=== PATIENT | female | born 2000 | race Two or more races ===

== ENCOUNTER 2025-04-27 19:25 | Emergency (ER) | payer OTHER ==
[~2025-04-27] VITALS: Ht 147.3 cm; Wt 46.7 kg
[2025-04-28] MEDS ORDERED: CEFTRIAXONE SODIUM 500 MG VIAL IM STA (00:03)
[2025-04-28] MEDS ORDERED: TETANUS & DIPHTHERIA TOX,ADULT 0.5 ML VIAL IM STA (00:03)
[2025-04-28] MEDS ORDERED: KETOROLAC TROMETHAMINE 30 MG VIAL IM STA (00:03)
[2025-04-28] MEDS ORDERED: AMOX-CLAV 875-1 EAC1 PO (00:10)
[2025-04-28] MEDS ORDERED: KETOROLAC TROMETHAMINE 30 MG VIAL ONE (00:16)
[2025-04-28] MEDS ORDERED: DIPHTH,PERTUSS(ACELL),TET VAC 0.5 ML SYRINGE IM ONE (00:17)
== END 2025-04-28 00:30 | disposition home or self-care (01) ==
LOC: ER 19:39
DX: S50.871A Other superficial bite of right forearm, initial encounter (principal); W55.01XA Bitten by cat, initial encounter; Y93.89 Activity, other specified; Y92.89 Other specified places as the place of occurrence of the external cause; Z91.013 Allergy to seafood